=== PATIENT | male | born 1960 | race Caucasian/White ===

== ENCOUNTER 2018-06-12 12:13 | Emergency (ER) | payer BC ==
[2018-06-12] MEDS ORDERED: ASPIRIN 81 MG CHEWABLE TABLETS PO ONE (12:42)
--- NOTE | 2018-06-12 12:42 | PDOC ---
History of Present Illness - General Chief Complaint: Chest Pain Stated Complaint: CHEST PAIN Time Seen by Provider: 06/12/18 12:37 History Source: Patient Exam Limitations: No Limitations - History of Present Illness Initial Comments: 57 yo M no past medical history, current every day smoker presents with cp, abrupt onset, mid-sternal radiating to R chest. He states that he had a vigorous cough right before the symptoms started, then he has been feeling the discomfort since then. This occurred this morning. He denies SOB, leg swelling, recent travel. No OH, no N/V. Cough is chronic, unchanged. No associated fevers , chills, sputum production. He continues to have the discomfort in R chest, "clammy" feeling, and "just not feeling right". Past History - Past Medical History Allergies/Adverse Reactions: Allergies Allergy/AdvReac Type Severity Reaction Status Date / Time aspirin Allergy Itching Verified 06/12/18 13:37 naproxen [From Naprosyn] Allergy Itching Verified 06/12/18 13:37 Home Medications: Ambulatory Orders NK [No Known Home Medication] 06/12/18 COPD: No Other medical history: PT DENIES - Suicide/Smoking/Psychosocial Hx Smoking Status: Yes Smoking History: Current every day smoker Have you smoked in the past 12 months: Yes Number of Cigarettes Smoked Daily: 20 Information on smoking cessation initiated: Yes 'Breaking Loose' booklet given: 06/12/18 Hx Alcohol Use: No Review of Systems - Review of Systems Able to Perform ROS?: Yes Comments:: GENERAL/CONSTITUTIONAL: No fever or chills. No weakness. HEAD, EYES, EARS, NOSE AND THROAT: No change in vision. No ear pain or discharge. No sore throat. CARDIOVASCULAR: +Chest pain. No shortness of breath. RESPIRATORY: +Cough. No wheezing or hemoptysis. GASTROINTESTINAL: No nausea, vomiting, diarrhea or constipation. GENITOURINARY: No dysuria, frequency, or change in urination. MUSCULOSKELETAL: No joint or muscle swelling or pain. No neck or back pain. SKIN: No rash NEUROLOGIC: No headache, vertigo, loss of consciousness, or change in strength/ sensation. ENDOCRINE: No increased thirst. No abnormal weight change. HEMATOLOGIC/LYMPHATIC: No anemia, easy bleeding, or history of blood clots. ALLERGIC/IMMUNOLOGIC: No hives or skin allergy. *Physical Exam - Vital Signs Last Vital Signs Temp Pulse Resp BP Pulse Ox 98.1 F 71 18 166/92 97 06/12/18 12:13 06/12/18 12:13 06/12/18 12:13 06/12/18 12:13 06/12/18 12:13 - Physical Exam Comments: GENERAL: Awake, alert, and fully oriented, in no acute distress HEAD: No signs of trauma EYES: PERRLA, EOMI, sclera anicteric, conjunctiva clear ENT: Auricles normal inspection, hearing grossly normal, nares patent, oropharynx clear without exudates. Moist mucosa NECK: Normal ROM, supple, no lymphadenopathy, JVD, or masses LUNGS: Breath sounds equal, clear to auscultation bilaterally. No wheezes, and no crackles HEART: Regular rate and rhythm, normal S1 and S2, no murmurs, rubs or gallops. ABDOMEN: Soft, nontender, normoactive bowel sounds. No guarding, no rebound. No masses EXTREMITIES: Normal range of motion, no edema. No clubbing or cyanosis. No cords, erythema, or tenderness NEUROLOGICAL: Cranial nerves II through XII grossly intact. Normal speech, normal gait SKIN: Warm, Dry, normal turgor, no rashes or lesions noted. Heart Score/ECG Review - History History: Moderately suspicious - Electrocardiogram EKG: Normal - Age Age: 45-65 - Risk Factors Risk Factors Heart Score: Yes Smoking History Based on the list above the patient has:: 1-2 risk factors - Troponin Troponin: </= normal limit - Score Heart Score - Total: 3 - ECG Impressions Comment:: EKG read 12:20- NSR 72 bpm, no acute ST/T changes ED Treatment Course - LABORATORY CBC & Chemistry Diagram: 06/12/18 12:20 06/12/18 12:20 Medical Decision Making - Medical Decision Making 06/12/18 13:36 Pt developing itching s/p aspirin PO. He initially stated he had no allergies to medications, but after taking aspirin, mentioned a naproxen allergy. 06/12/18 15:36 Patient resting comfortably in bed. He states he has no pain at present. Second troponin pending. *DC/Admit/Observation/Transfer Diagnosis at time of Disposition: Atypical chest pain - Discharge Dispostion Disposition: HOME Condition at time of disposition: Stable Decision to Admit order: No - Referrals Referrals: Marcin Christianson MD [Primary Care Provider] - - Patient Instructions Printed Discharge Instructions: DI for Atypical Chest Pain - Post Discharge Activity
[2018-06-12] MEDS ORDERED: ASPIRIN 81 MG CHEWABLE TABLETS ONE (12:49)
[2018-06-12 12:55] VITALS: TEMP 98.1; BMI 24.3
[2018-06-12 12:57] LABS: BASO % 0.7 % (0-2.0); HEMATOCRIT 50.7 % (35.4-49); HEMOGLOBIN 17.2 GM/dl (11.7-16.9); LYMPH % 19.4 % (8-40); MCH 32.3 pg (25.7-33.7); MEAN CELL VOLUME 94.9 fl (80-96); MEAN PLT VOLUME 7.5 fl (7.5-11.1); MONO % 7.1 % (3.8-10.2); NEUT % 69.8 % (42.8-82.8); PLATELET COUNT 277 K/MM3 (134-434); RBC 5.34 M/mm3 (4.00-5.60); RDW 12.9 % (11.9-15.9); WHITE BLOOD COUNT 8.7 K/mm3 (4.0-10.8)
[2018-06-12 13:18] LABS: ALBUMIN 4.2 g/dl (3.5-5.0); ALK PHOS 57 U/L (32-92); ANION GAP 12 MMOL/L (8-16); BILIRUBIN,TOTAL 0.9 mg/dl (0.2-1.0); BLOOD UREA NITROGEN 12 mg/dl (7-18); CALCIUM 9.1 mg/dl (8.4-10.2); CHLORIDE 100 mmol/L (98-107); CO2 27 mmol/L (22-28); CREATININE 0.8 mg/dl (0.6-1.3); GLUCOSE,RANDOM 83 mg/dl (74-106); POTASSIUM 3.9 mmol/L (3.5-5.1); SGOT/AST 33 U/L (10-42); SGPT/ALT 38 U/L (10-40); SODIUM 139 mmol/L (136-145); TOT PROT 7.3 g/dl (6.4-8.3)
[2018-06-12] MEDS ORDERED: diphenhydrAMINE HCL 25 MG CAPSULE (FP) PO ONE ×2 (13:36→13:38)
[2018-06-12 14:04] LABS: LIPASE 119 U/L (73-393)
[2018-06-12 16:14] VITALS: BP 135/81; PULSE 72
--- NOTE | 2018-06-13 10:01 | EKG ---
Test Reason : Blood Pressure : / mmHG Vent. Rate : 072 BPM Atrial Rate : 072 BPM P-R Int : 124 ms QRS Dur : 086 ms QT Int : 404 ms P-R-T Axes : 067 075 053 degrees QTc Int : 442 ms NORMAL SINUS RHYTHM NORMAL ECG WHEN COMPARED WITH ECG OF 28-DEC-2001 13:25, NO SIGNIFICANT CHANGE WAS FOUND Confirmed by TROY ESQUEDA MD ([id number]) on 06/13/2018 10:01:21 AM Referred By: ELENA MARCANO Confirmed By:TROY ESQUEDA MD
== END 2018-06-12 16:15 | disposition home or self-care (01) ==
LOC: FER 12:13
DX: R07.89 Other chest pain (principal); F17.210 Nicotine dependence, cigarettes, uncomplicated
CPT/HCPCS: 36415; 71045-TC-FY; 80053; 82550; 82553; 83690; 84484; 85025; 93005; 99285-25

== ENCOUNTER 2018-11-30 07:32 | Day surgery (SDC) | payer BC ==
--- NOTE | 2018-11-15 11:37 | HP ---
DATE OF SURGERY: 11/30/2018 REASON FOR ADMISSION: Bilateral inguinal hernias. BRIEF HISTORY: This is a 57-year-old gentleman who complains of bilateral groin pain. He has had this for many years, but over the past month, the pain has gotten significantly worse and sometimes keeps him up at night. He has had no nausea, no vomiting, no change in bowel habits. He complains of having protrusions in both groins. PAST MEDICAL HISTORY: Significant for glaucoma. No coronary disease, hypertension, or diabetes. PAST SURGICAL HISTORY: Patient has had hemorrhoid surgery by Dr. Reeves. ALLERGIES: ASPIRIN. MEDICATIONS: None. SOCIAL HISTORY: Patient smokes 1/4 pack of cigarettes per day and drinks socially. PHYSICAL EXAMINATION: Abdomen: Soft, nontender, nondistended. He has 2 obvious bilateral inguinal hernias. The left is much greater than the right. Both hernias are reducible. Pelvic: Both scrotum and testicles are within normal limits. IMPRESSION/PLAN: Bilateral inguinal hernias, left greater than right. This is a 57-year-old gentleman with bilateral inguinal hernias. He is becoming more symptomatic from both groin hernias. However, the symptoms are worse on the left at this time. I would recommend repair of both these inguinal hernias at this time , and it can be done laparoscopically. If the surgery cannot be done laparoscopically due to technical issues, the patient will be converted to an open left inguinal hernia repair and the right hernia will be addressed several weeks later. Due to the size of the hernia on the left, he is more likely to develop a postoperative seroma which may or may not resolve. He understands this and still wants to proceed. The indications, alternatives, and complications of the procedure are discussed. Questions answered. We will plan to obtain written consent the day of surgery. RAY GHOTRA M.D. [id number] cc: Marcin Christianson MD MTDD
[2018-11-30] MEDS ORDERED: TAMSULOSIN HCL 0.4 MG CAP ONE (08:08)
[2018-11-30 08:20] VITALS: BMI 24.3
[2018-11-30] MEDS ORDERED: DEXAMETHASONE SOD PHOSPHATE 4 MG/1 ML VIAL ONE ×2 (08:57→10:05)
[2018-11-30] MEDS ORDERED: ONDANSETRON 4 MG/2 ML VIAL ONE ×3 (08:57→11:05)
[2018-11-30] MEDS ORDERED: ceFAZolin SODIUM 1 GM VIAL ONE ×2 (08:57→10:05)
[2018-11-30] MEDS ORDERED: LIDOCAINE HCL/PF 2% SDV 5ML VIAL ONE ×2 (08:57→09:30)
[2018-11-30] MEDS ORDERED: SODIUM CHLORIDE 0.9% P/F 10 ML VIAL IJ ONE (08:57)
[2018-11-30] MEDS ORDERED: ROCURONIUM BROMIDE 50 MG/5 ML VIAL ONE ×3 (09:00→10:13)
[2018-11-30] MEDS ORDERED: PROPOFOL 20 ML ONE ×3 (09:00→10:24)
[2018-11-30] MEDS ORDERED: ROPIVACAINE HCL 0.5% 30ML VIAL ONE (09:02)
[2018-11-30] MEDS ORDERED: MIDAZOLAM HCL 2 MG/2 ML SINGLE DOSE VIAL ONE ×2 (09:02→09:30)
[2018-11-30] MEDS ORDERED: GLYCOPYRROLATE 0.2 MG/1 ML VIAL ONE (10:34)
[2018-11-30] MEDS ORDERED: NEOSTIGMINE METHYLSULFATE 0.5 MG/ML - 10 ML MDV ONE (10:34)
[2018-11-30] MEDS ORDERED: ONDANSETRON 4 MG/2 ML VIAL IVPUSH PRN (11:07)
[2018-11-30] MEDS ORDERED: oxyCODONE HCL 5 MG TABLET PO PRN (11:07)
[2018-11-30] MEDS ORDERED: LACTATED RINGERS SOLUTION 1,000 ML IV SCH (11:15)
[2018-11-30] MEDS ORDERED: oxyCODONE HCL 5 MG TABLET ONE (13:03)
[2018-11-30 15:38] VITALS: TEMP 98.2
[2018-11-30 15:52] VITALS: BP 132/82; PULSE 66
--- NOTE | 2018-12-01 15:22 | OP ---
DATE OF OPERATION: 11/30/2018 PREOPERATIVE DIAGNOSIS: Bilateral inguinal hernias. POSTOPERATIVE DIAGNOSIS: Left pantaloon inguinal hernia, incarcerated direct component, right indirect inguinal hernia. PROCEDURES: Laparoscopic repair of incarcerated left inguinal hernia, laparoscopic repair of right inguinal hernia, both done with mesh. SURGEON: Howard Thao MD COMMERCIAL CRABBER: Brian Adam DO ANESTHESIA: Pk Espinoza MD (general), ESTIMATED BLOOD LOSS: Minimal. SPECIMEN: None. INDICATIONS/PROCEDURE: This is a 58-year-old gentleman symptomatic from 2 known inguinal hernias. He is now here for operative repair. Patient was identified and appropriately positioned on the operating room table. After placement of general anesthesia, the abdomen was prepped and draped in the usual sterile fashion with ChloraPrep. An infraumbilical incision was made deep into the subcutaneous tissues. The fascia of the rectus muscle on the right identified, divided sharply, the muscles split. Under direct vision, a dissector balloon followed by a structural balloon placed. Also, under direct vision a suprapubic 11-mm port placed. The following structures on the right side identified, pubic tubercle, Coopers ligament, inferior epigastric vessels, spermatic cord, and lateral abdominal wall. During this dissection, the patient was noted to have no direct component, but a large indirect inguinal hernia, which was reduced back into the preperitoneal space with blunt dissection. A moderate-sized lipoma was reduced, as well. A 5 x 6 piece of Versatex mesh was keyhole placed through the suprapubic port site. The mesh wrapped around the cord structures laterally to reconstruct the internal ring. Laterally, the mesh anchored to the anterior abdominal wall and lateral abdominal wall. Medially, the mesh anchored to the anterior abdominal wall, pubic tubercle, and Coopers ligament. Upon completion of the right side, similar structures on the left side identified. On the left side, there was an incarcerated direct inguinal hernia that contained fat. This reduced back into the preperitoneal space with blunt dissection. He had a moderate-sized indirect inguinal hernia sac reduced as well along with a moderate-sized lipoma. Another 5 x 6 piece of Versatex mesh was keyhole placed through the suprapubic port site. The mesh wrapped around the cord structures laterally to reconstruct the internal ring. Laterally, the mesh anchored to the anterior abdominal wall and lateral abdominal wall. Medially, the mesh well overlapped in the midline, anchored to the anterior abdominal wall, pubic tubercle, and Coopers ligament. The preperitoneal space desufflated under direct vision. The port sites were structurally hemostatic. Both port sites were reapproximated with interrupted 0 Vicryl suture. All skin closed with 4-0 subcuticular Biosyn. The anchors used were the AbsorbaTack, the mesh used was Versatex two 15 x 15 pieces cut to the appropriate size. At the conclusion of this case, sponge counts were correct. ATTESTATION: Brief operative note handwritten on the preprinted form. [facility] queried prior to giving any narcotics. Julita BOWEN [id number] cc: Marcin Christianson MD
== END 2018-11-30 15:30 | disposition home or self-care (01) ==
LOC: FASU 07:32
PROVIDERS: ATTEND Surgery
PROC: 0YUA4JZ Supplement Bilateral Inguinal Region with Synthetic Substitute, Percutaneous Endoscopic Approach (ICD-10-PCS; principal; 2018-11-30 10:12)
DX: K40.30 Unilateral inguinal hernia, with obstruction, without gangrene, not specified as recurrent (principal); K40.90 Unilateral inguinal hernia, without obstruction or gangrene, not specified as recurrent
CPT/HCPCS: 94760

== ENCOUNTER 2019-09-17 13:31 | Emergency (ER) | payer BC ==
[2019-09-17] MEDS ORDERED: SODIUM CHLORIDE 1,000 ML IV STA (13:37)
[2019-09-17] MEDS ORDERED: morphine CARPU-JECT 4 MG/1 ML DISP.SYRIN IVPUSH ONE (13:37)
[2019-09-17] MEDS ORDERED: ONDANSETRON 4 MG/2 ML VIAL IVPB ONE (13:37)
[2019-09-17] MEDS ORDERED: morphine SULFATE 4 MG/ML VIAL ONE (13:40)
[2019-09-17] MEDS ORDERED: ONDANSETRON 4 MG/2 ML VIAL ONE (13:41)
--- NOTE | 2019-09-17 13:42 | PDOC ---
History of Present Illness - General Chief Complaint: Pain, Acute Stated Complaint: BACK AND TESTICULAR PAIN Time Seen by Provider: 09/17/19 13:32 History Source: Patient Exam Limitations: No Limitations - History of Present Illness Travel History: No Initial Comments: 09/17/19 13:38 58 y/o male presents with right flank pain radiating into right groin/testicle since 4 am. Has not taken anything. Had a bowel movement. No fever or chills. No hx of kidney stone, denies hematuria. Patient states to be a little nauseous , but no vomiting or diarrhea. Denies fall or trauma to the area. Pain Radiation: reports: no radiation Past History - Past Medical History Allergies/Adverse Reactions: Allergies Allergy/AdvReac Type Severity Reaction Status Date / Time aspirin Allergy Itching Verified 09/17/19 13:32 naproxen [From Naprosyn] Allergy Itching Verified 09/17/19 13:32 Home Medications: Ambulatory Orders Tamsulosin HCl [Flomax] 0.4 mg PO DAILY #7 cap.er.24h 09/17/19 Anemia: No Asthma: No Cancer: No Cardiac Disorders: No CVA: No COPD: No CHF: No Dementia: No Diabetes: No GI Disorders: No Disorders: No HTN: No Hypercholesterolemia: No Liver Disease: No Seizures: No Thyroid Disease: No - Surgical History Abdominal Surgery: No Appendectomy: No Cardiac Surgery: No Cholecystectomy: No Lung Surgery: No Neurologic Surgery: No Orthopedic Surgery: No - Psycho Social/Smoking Cessation Hx Smoking Status: Yes Smoking History: Current every day smoker Have you smoked in the past 12 months: Yes Number of Cigarettes Smoked Daily: 12 Information on smoking cessation initiated: Yes 'Breaking Loose' booklet given: 11/30/18 Hx Alcohol Use: Yes (OCASIONAL) Drug/Substance Use Hx: No Substance Use Type: Marijuana Hx Substance Use Treatment: No Review of Systems - Review of Systems Able to Perform ROS?: Yes Is the patient limited Greenlandic proficient: No Constitutional: No: Chills, Fever Respiratory: No: Cough, Shortness of Breath Cardiac (ROS): No: Chest Pain ABD/GI: Yes: Nausea. No: Diarrhea, Vomiting : Yes: Flank Pain. No: Dysuria, Hematuria Musculoskeletal: Yes: Back Pain Integumentary: No: Bruising All Other Systems: Reviewed and Negative *Physical Exam - Vital Signs Last Vital Signs Temp Pulse Resp BP Pulse Ox 98.2 F 72 16 171/109 H 100 09/17/19 13:31 09/17/19 13:31 09/17/19 13:31 09/17/19 13:31 09/17/19 13:31 - Physical Exam General Appearance: Yes: Nourished, Appropriately Dressed, Mild Distress HEENT: positive: EOMI, FRANKIE, Normal ENT Inspection, Normal Voice, Symmetrical, Pharynx Normal Neck: positive: Trachea midline, Normal Thyroid, Supple. negative: Tender, Rigid Respiratory/Chest: positive: Lungs Clear, Normal Breath Sounds. negative: Chest Tender, Respiratory Distress Cardiovascular: positive: Regular Rhythm, Regular Rate, S1, S2. negative: Edema , JVD, Murmur Vascular Pulses: Femoral (R): 4+, Femoral (L): 4+, Carotid (R): 4+, Carotid (L) : 4+, Dorsalis-Pedis (R): 4+, Doralis-Pedis (L): 4+ Gastrointestinal/Abdominal: positive: Normal Bowel Sounds, Flat, Soft (no RLQ, LLQ tenderness, no RUQ or LUQ tenderness +BS, no hernia noted). negative: Tender, Organomegaly, Pulsatile Mass Lymphatic: negative: Adenopathy, Tenderness, Other Musculoskeletal: positive: Normal Inspection. negative: CVA Tenderness Extremity: positive: Normal Capillary Refill, Normal Inspection, Normal Range of Motion. negative: Tender Integumentary: positive: Normal Color, Dry, Warm Neurologic: positive: edger tailer II-XII NML intact, Fully Oriented, Alert, Normal Mood/ Affect, Normal Response, Motor Strength /5 ED Treatment Course - LABORATORY CBC & Chemistry Diagram: 09/17/19 14:12 09/17/19 14:12 - ADDITIONAL ORDERS Additional order review: 09/17/19 13:41 Right flank pain, will obtain CT, fluids, and blood work Will give pain meds, avoid Toradol since allergic to Aleve Pt is in agreement with plan ED Progress Note - Progress Note Progress Note: 09/17/19 14:44 Pt is feeling better. Will prescribe Flomax and Tylenol Follow up with Urologist If worsen return to ER CT show 3.5 mm right distal ureter stone Discharge - Discharge Information Problems reviewed: Yes Clinical Impression/Diagnosis: Kidney stone on right side Condition: Good Disposition: HOME - Admission No - Follow up/Referral Referrals: Anurag Donald MD [Staff Physician] - - Patient Discharge Instructions Patient Printed Discharge Instructions: DI for Kidney Stones Additional Instructions: Tylenol, rest, fluids Flomax 0.4 mg daily If worsen return to ER - Post Discharge Activity
[2019-09-17 13:50] VITALS: TEMP 98.2; BMI 24.3
[2019-09-17 14:12] LABS: EPITHELIAL CELLS RARE /hpf
[2019-09-17 14:19] LABS: BASO % 1.8 % (0-2.0); EOS % 0.1 % (0-4.5); HEMATOCRIT 50.2 % (35.4-49); HEMOGLOBIN 17.2 GM/dl (11.7-16.9); LYMPH % 4.2 % (8-40); MCH 32.9 pg (25.7-33.7); MCHC 34.2 g/dl (32.0-35.9); MEAN CELL VOLUME 96.2 fl (80-96); MEAN PLT VOLUME 7.6 fl (7.5-11.1); MONO % 4.2 % (3.8-10.2); NEUT % 89.7 % (42.8-82.8); PLATELET COUNT 295 K/MM3 (134-434); RBC 5.22 M/mm3 (4.00-5.60); RDW 12.4 % (11.9-15.9); WHITE BLOOD COUNT 20.4 K/mm3 (4.0-10.8)
[2019-09-17 14:24] VITALS: BP 160/92; PULSE 66
[2019-09-17 14:24] LABS: ALBUMIN 4.4 g/dl (3.4-5.0); BILIRUBIN,TOTAL 1.1 mg/dl (0.2-1); CALCIUM 9.4 mg/dl (8.5-10); POTASSIUM 4.6 mmol/L (3.5-5.1); TOT PROT 7.4 g/dl (6.4-8.2)
== END 2019-09-17 15:05 | disposition home or self-care (01) ==
LOC: FER 13:31
PROC: 3E033NZ Introduction of Analgesics, Hypnotics, Sedatives into Peripheral Vein, Percutaneous Approach (ICD-10-PCS; principal; 2019-09-17)
PROC: 3E0337Z Introduction of Electrolytic and Water Balance Substance into Peripheral Vein, Percutaneous Approach (ICD-10-PCS; 2019-09-17)
PROC: 3E033GC Introduction of Other Therapeutic Substance into Peripheral Vein, Percutaneous Approach (ICD-10-PCS; 2019-09-17)
DX: N20.0 Calculus of kidney (principal); F17.210 Nicotine dependence, cigarettes, uncomplicated; Z88.5 Allergy status to narcotic agent; Z88.6 Allergy status to analgesic agent
CPT/HCPCS: 36415; 74176-TC; 80053; 81003; 81015; 85025; 99283-25; J7030

== ENCOUNTER 2019-10-02 19:24 | Emergency (ER) | payer BC ==
[2019-10-02] MEDS ORDERED: morphine CARPU-JECT 10 MG/1 ML DISP.SYRIN IVPUSH STA (19:27)
[2019-10-02] MEDS ORDERED: SODIUM CHLORIDE 0.9% 500 ML INFUS.BAG IV ONE ×2 (19:27→20:47)
[2019-10-02] MEDS ORDERED: morphine SULFATE 4 MG/ML VIAL ONE (19:33)
[2019-10-02 19:36] VITALS: TEMP 97.3; BMI 24.3
[2019-10-02] MEDS ORDERED: HYDROmorphone HCL CARPU-JECT 1 MG/1 ML DISP.SYRIN IVPUSH ONE (20:47)
[2019-10-02] MEDS ORDERED: HYDROmorphone HCL CARPU-JECT 1 MG/1 ML DISP.SYRIN ONE ×3 (20:48→22:47)
[2019-10-02] MEDS ORDERED: HYDROmorphone HCL CARPU-JECT 1 MG/1 ML DISP.SYRIN IVPB ONE (21:59)
--- NOTE | 2019-10-02 22:29 | PDOC ---
Documentation entered by Karoline Shi SCRIBE, acting as scribe for Bogdan Joe MD. Bogdan Joe MD: This documentation has been prepared by the Jose Guadalupe lee Xhesika, SCRIBE, under my direction and personally reviewed by me in its entirety. I confirm that the documentation accurately reflects all work, treatment, procedures, and medical decision making performed by me. History of Present Illness - General Chief Complaint: Pain, Acute Stated Complaint: RIGHT FLANK PAIN SINCE AM History Source: Patient Exam Limitations: No Limitations - History of Present Illness Initial Comments: 10/02/19 19:28 The patient is a 58 year old male with a significant PMH of kidney stones who presents to the emergency department for R flank pain since 4:30am. The patient was seen here in the ED last month for similar symptoms and was d/c home with relief of symptoms and urology follow-up. Pt states he has not seen his urologist due to his insurance. Pt states he took percocet and flomax this morning, and then took percocet 30 min [employer]. patient reports associated chills and sweats. The patient denies chest pain, shortness of breath, headache and dizziness. Denies fever, cough, nausea, vomiting, diarrhea and constipation. Denies dysuria , frequency, urgency and hematuria. Allergies:aspirin, naproxen Past surgical history: hernia repair. PCP: Dr. Christianson Past History - Past Medical History Allergies/Adverse Reactions: Allergies Allergy/AdvReac Type Severity Reaction Status Date / Time aspirin Allergy Itching Verified 10/02/19 19:26 naproxen [From Naprosyn] Allergy Itching Verified 10/02/19 19:26 Home Medications: Ambulatory Orders Oxycodone HCl/Acetaminophen [Percocet 5-325 mg Tablet] 1 - 2 tab PO Q4H #10 tablet MDD 6 09/17/19 Tamsulosin HCl [Flomax] 0.4 mg PO DAILY #7 cap.er.24h 09/17/19 Anemia: No Asthma: No Cancer: No Cardiac Disorders: No CVA: No COPD: No CHF: No Dementia: No Diabetes: No GI Disorders: No Disorders: No HTN: No Hypercholesterolemia: No Liver Disease: No Seizures: No Thyroid Disease: No - Surgical History Abdominal Surgery: No Appendectomy: No Cardiac Surgery: No Cholecystectomy: No Lung Surgery: No Neurologic Surgery: No Orthopedic Surgery: No - Psycho Social/Smoking Cessation Hx Smoking Status: Yes Smoking History: Current every day smoker Have you smoked in the past 12 months: Yes Number of Cigarettes Smoked Daily: 15 'Breaking Loose' booklet given: 11/30/18 Hx Alcohol Use: No (few beers/day) Drug/Substance Use Hx: Yes (daily) Substance Use Type: Marijuana Hx Substance Use Treatment: No Review of Systems - Review of Systems Able to Perform ROS?: Yes Comments:: 10/02/19 19:29 GENERAL/CONSTITUTIONAL: No fever. No weakness. +chills HEAD, EYES, EARS, NOSE AND THROAT: No change in vision. No ear pain or discharge. No sore throat. CARDIOVASCULAR: No chest pain or shortness of breath. RESPIRATORY: No cough, wheezing, or hemoptysis. GASTROINTESTINAL: No nausea, vomiting, diarrhea or constipation. GENITOURINARY: No dysuria, frequency, or change in urination. MUSCULOSKELETAL: +R flank pain. No joint or muscle swelling or pain. No neck pain. SKIN: No rash NEUROLOGIC: No headache, vertigo, loss of consciousness, or change in strength/ sensation. ENDOCRINE: No increased thirst. No abnormal weight change. HEMATOLOGIC/LYMPHATIC: No anemia, easy bleeding, or history of blood clots. ALLERGIC/IMMUNOLOGIC: No hives or skin allergy. *Physical Exam - Physical Exam 10/02/19 19:30 GENERAL: Awake, alert, and fully oriented, in no acute distress HEAD: No signs of trauma EYES: PERRLA, EOMI, sclera anicteric, conjunctiva clear ENT: Auricles normal inspection, hearing grossly normal, nares patent, oropharynx clear without exudates. Moist mucosa NECK: Normal ROM, supple, no lymphadenopathy, JVD, or masses LUNGS: Breath sounds equal, clear to auscultation bilaterally. No wheezes, and no crackles HEART: Regular rate and rhythm, normal S1 and S2, no murmurs, rubs or gallops ABDOMEN: Soft, nontender, normoactive bowel sounds. No guarding, no rebound. No masses BACK: +R CVA tenderness. EXTREMITIES: Normal range of motion, no edema. No clubbing or cyanosis. No cords, erythema, or tenderness NEUROLOGICAL: Cranial nerves II through XII grossly intact. Normal speech, normal gait SKIN: Warm, Dry, normal turgor, no rashes or lesions noted. ED Treatment Course - LABORATORY CBC & Chemistry Diagram: 10/02/19 22:45 10/02/19 22:45 Medical Decision Making - Medical Decision Making 10/03/19 00:50 UVJ stone improved with IV fluids and IV opioids fu Discharge - Discharge Information Problems reviewed: Yes Clinical Impression/Diagnosis: Kidney stone on right side Condition: Good - Follow up/Referral Referrals: Anurag Donald MD [Staff Physician] - Call tomorrow - Patient Discharge Instructions - Post Discharge Activity
[2019-10-02] MEDS ORDERED: HYDROmorphone HCL CARPU-JECT 1 MG/1 ML DISP.SYRIN IVPB STA (22:41)
[2019-10-02 23:05] LABS: HEMATOCRIT 41.6 % (35.4-49); HEMOGLOBIN 14.2 GM/dl (11.7-16.9); MCH 32.4 pg (25.7-33.7); MCHC 34.2 g/dl (32.0-35.9); MEAN CELL VOLUME 94.8 fl (80-96); MEAN PLT VOLUME 7.3 fl (7.5-11.1); PLATELET COUNT 212 K/MM3 (134-434); RBC 4.39 M/mm3 (4.00-5.60); RDW 11.9 % (11.9-15.9); WHITE BLOOD COUNT 14.2 K/mm3 (4.0-10.8)
[2019-10-02 23:09] LABS: ALBUMIN 3.7 g/dl (3.4-5.0); BILIRUBIN,TOTAL 0.9 mg/dl (0.2-1); CALCIUM 7.6 mg/dl (8.5-10); CREATININE 1.3 mg/dl (0.55-1.3); POTASSIUM 3.8 mmol/L (3.5-5.1); TOT PROT 6.3 g/dl (6.4-8.2)
[2019-10-02 23:35] LABS: PLATELET ESTIMATE ADEQUATE
[2019-10-03 00:57] VITALS: BP 152/95; PULSE 73
--- NOTE | 2019-10-03 09:26 | EKG ---
Test Reason : Blood Pressure : / mmHG Vent. Rate : 072 BPM Atrial Rate : 072 BPM P-R Int : 132 ms QRS Dur : 082 ms QT Int : 404 ms P-R-T Axes : 065 070 049 degrees QTc Int : 442 ms NORMAL SINUS RHYTHM POSSIBLE LEFT ATRIAL ENLARGEMENT LEFT VENTRICULAR HYPERTROPHY ABNORMAL ECG WHEN COMPARED WITH ECG OF 12-JUN-2018 12:21, NO SIGNIFICANT CHANGE WAS FOUND Confirmed by Pk Montalvo MD ([id number]) on 10/03/2019 9:26:31 AM Referred By: Confirmed By:Pk Montalvo MD
== END 2019-10-03 01:08 | disposition home or self-care (01) ==
LOC: SUPCPDRO 19:24 → FER 19:24
PROC: 3E033NZ Introduction of Analgesics, Hypnotics, Sedatives into Peripheral Vein, Percutaneous Approach (ICD-10-PCS; principal; 2019-10-02)
PROC: 3E0337Z Introduction of Electrolytic and Water Balance Substance into Peripheral Vein, Percutaneous Approach (ICD-10-PCS; 2019-10-02)
DX: N20.0 Calculus of kidney (principal); Z88.8 Allergy status to other drugs, medicaments and biological substances; F17.210 Nicotine dependence, cigarettes, uncomplicated
CPT/HCPCS: 36415; 74176-TC; 80053; 81003; 81015; 85025; 87086; 93005; 99283-25

== ENCOUNTER 2023-01-09 06:31 | Inpatient (IN) | payer BC ==
[2023-01-09 06:48] VITALS: BMI 24.3
[2023-01-09 08:13] LABS: HEMATOCRIT 46.8 % (35.4-49); HEMOGLOBIN 15.9 G/dL (11.7-16.9); MCH 32.1 pg (25.7-33.7); MCHC 33.9 g/dl (32.0-35.9); MEAN CELL VOLUME 94.8 fl (80-96); MEAN PLT VOLUME 7.5 fl (7.5-11.1); PLATELET COUNT 259.4 10^3/uL (134-434); RBC 4.94 10^6/uL (4.00-5.60); RDW 13.8 % (11.9-15.9); WHITE BLOOD COUNT 7.8 10^3/uL (4.0-10.8)
[2023-01-09 08:18] LABS: PLATELET ESTIMATE ADEQUATE
[2023-01-09 08:21] LABS: ALBUMIN 3.9 g/dl (3.4-5.0); BILIRUBIN,TOTAL 0.9 mg/dl (0.2-1); CALCIUM 8.8 mg/dl (8.5-10); CREATININE 0.9 mg/dl (0.55-1.3); TOT PROT 6.9 g/dl (6.4-8.2)
[2023-01-09] MEDS ORDERED: ASPIRIN 81 MG CHEWABLE TABLETS PO ONE (09:05)
[2023-01-09] MEDS ORDERED: ASPIRIN 81 MG CHEWABLE TABLETS ONE (09:11)
[2023-01-09] MEDS ORDERED: MAG HYDROX/AL HYDROX/SIMETH 30 ML UNIT-DOSE CUP PO PRN (11:18)
[2023-01-09] MEDS ORDERED: ROSUVASTATIN CA 40 MG TABLET PO ONE (11:18)
[2023-01-09] MEDS: PANTOPRAZOLE 40 MG TABLET PO SCH (12:52)
[2023-01-09] MEDS ORDERED: ACETAMINOPHEN 1000 MG/100 ML BAG IVPB PRN (17:09)
[2023-01-09 19:58] LABS: OPIATES, URI NEGATIVE (NEGATIVE); PHENCYCLIDINE,URINE NEGATIVE (NEGATIVE); URINE BARBITURATES NEGATIVE (NEGATIVE)
[2023-01-09 20:00] LABS: COCAINE, UR NEGATIVE (NEGATIVE)
[2023-01-09 20:03] LABS: METHADONE, UR NEGATIVE (NEGATIVE); URINE AMPHETAMINES NEGATIVE (NEGATIVE); URINE BENZODIAZEPINES NEGATIVE (NEGATIVE)
[2023-01-10] MEDS: PANTOPRAZOLE 40 MG TABLET PO SCH (09:20)
[2023-01-10] MEDS: ENOXAPARIN NA (PORCINE) 40 MG/0.4 ML DISP.SYRIN SQ SCH (09:21)
[2023-01-10] MEDS: ROSUVASTATIN CA 40 MG TABLET PO SCH (21:34)
[2023-01-11 08:43] LABS: ALBUMIN 3.6 g/dl (3.4-5.0); BILIRUBIN,TOTAL 0.7 mg/dl (0.2-1); CALCIUM 8.9 mg/dl (8.5-10); CREATININE 0.7 mg/dl (0.55-1.3); MAGNESIUM 1.8 mg/dL (1.8-2.4); TOT PROT 6.5 g/dl (6.4-8.2)
[2023-01-11] MEDS ORDERED: REGADENOSON 0.4 MG/5 ML PRE-FILLED SYRINGE IVPUSH ONE ×2 (08:52→09:15)
[2023-01-11] MEDS: PANTOPRAZOLE 40 MG TABLET PO SCH (09:32)
[2023-01-11] MEDS: ENOXAPARIN NA (PORCINE) 40 MG/0.4 ML DISP.SYRIN SQ SCH (09:32)
[2023-01-11 09:36] LABS: MCH 32.3 pg (25.7-33.7); MCHC 34.8 g/dl (32.0-35.9); MEAN CELL VOLUME 92.8 fl (80-96); MEAN PLT VOLUME 7.1 fl (7.5-11.1); PLATELET COUNT 264 10^3/uL (134-434); RBC 4.95 M/mm3 (4.00-5.60); RDW 13.4 % (11.9-15.9); WHITE BLOOD COUNT 8.7 K/mm3 (4.0-10.0)
[2023-01-11 11:56] LABS: ANISOCYTOSIS 0; HELMET CELLS 0; HOWELL-JOLLY BODIES 0; MACROCYTOSIS 0; OVALOCYTE 0; ROULEAU 0; SICKELED CELLS 0; TARGET CELLS 0; TEAR DROP CELLS 0; TOXIC GRANULATION 0
[2023-01-11] MEDS ORDERED: CLOPIDOGREL BISULFATE 75 MG TABLET (FP) PO SCH (18:00)
[2023-01-11] MEDS: ROSUVASTATIN CA 40 MG TABLET PO SCH (21:25)
[2023-01-12 03:08] VITALS: RESP 18
[2023-01-12 08:08] VITALS: BP 161/89; PULSE 63; TEMP 98
== END 2023-01-12 08:59 | disposition short-term general hospital (02) | DRG 282 ==
LOC: FER 06:31 → UNDOADMOB 09:45 → FM/S 09:45 → INTOOBSV 11:17 → OBSVTOIN 11:17 → FM/S 13:23 → INTOOBSV 13:23 → OBSVTOIN 13:23 → UNDOADMOB 13:23 → FM/S 01-11 15:20 → OBSVTOIN 01-11 17:58 → FM/S 01-11 17:58
PROVIDERS: ATTEND Internal Medicine
DX: I21.4 Non-ST elevation (NSTEMI) myocardial infarction (principal); R07.89 Other chest pain; F17.210 Nicotine dependence, cigarettes, uncomplicated; N40.0 Benign prostatic hyperplasia without lower urinary tract symptoms
CPT/HCPCS: 36415; 71046-TC-FY; 78452-TC; 80053; 80061; 80307; 83036; 83735; 84439; 84443; 84484; 85027; 93005; 93017; 93306-TC; 99285-25; A9502; C9803-CS; J2785; U0003; U0005